=== PATIENT | male | born 1995 | race Caucasian/White ===

== ENCOUNTER 2016-11-15 21:41 | Emergency (ER) | payer OTHER ==
[2016-11-15 21:46] VITALS: BP 128/71
[2016-11-15] MEDS ORDERED: Ibuprofen TAB* 600 MG PO ONE (22:06)
--- NOTE | 2016-11-15 22:47 | RAD ---
INDICATION: Left hand injury COMPARISON: None TECHNIQUE: AP, lateral, and oblique views were obtained. FINDINGS: There is no acute fracture. The joint spaces are obtained. There is a laceration of the thumb. There is is no foreign body IMPRESSION: NO ACUTE FRACTURE OR FOREIGN BODY. LACERATION.
--- NOTE | 2016-11-15 23:04 | ED ---
Upper Extremity Pain - HPI Summary HPI Summary: Pt here w/ Lt hand injury prior to arrival. Was working on a 4-red when it fell of the stand and landed on his hand, cutting the skin over his thumb. Denies numbness, tingling, weakness here - moving fingers and wrist well. Tetanus is UTD as he injuries himself often in his line of work and w/ lifestyle activities. No other injuries to report. - History of Current Complaint Chief Complaint: EDLacSutureRecheck Stated Complaint: LEFT HAND INJURY/LAC Time Seen by Provider: 11/15/16 21:57 Hx Obtained From: Patient - Allergies/Home Medications Allergies/Adverse Reactions: Allergies Allergy/AdvReac Type Severity Reaction Status Date / Time No Known Allergies Allergy Verified 11/15/16 21:46 PMH/Surg Hx/FS Hx/Imm Hx Previously Healthy: Yes Endocrine/Hematology History: Denies: Hx Anticoagulant Therapy, Hx Blood Disorders, Hx Diabetes, Hx Thyroid Disease, Hx Unexplained Bleeding Cardiovascular History: Denies: Hx Congenital Heart Disease, Hx Congestive Heart Failure, Hx Deep Vein Thrombosis, Hx Hypertension, Hx Myocardial Infarction, Hx Pacemaker/ICD Respiratory History: Denies: Hx Asthma, Hx Chronic Obstructive Pulmonary Disease (COPD), Hx Lung Cancer, Hx Pneumonia, Hx Pulmonary Embolism GI History: Denies: Hx Gall Bladder Disease, Hx Gastrointestinal Bleed, Hx Ulcer, Hx Urosepsis History: Denies: Hx Kidney Stones, Hx Renal Disease Neurological History: Denies: Hx Dementia, Hx Migraine, Hx Seizures, Hx Transient Ischemic Attacks (TIA) Psychiatric History: Denies: Hx Anxiety, Hx Depression, Hx Schizophrenia, Hx Bipolar Disorder - Surgical History Surgery Procedure, Year, and Place: knee surgery Infectious Disease History: No Infectious Disease History: Denies: Traveled Outside the [place] in Last 30 Days - Family History Known Family History: Positive: Cardiac Disease, Hypertension Negative: Diabetes - Social History Occupation: Employed Full-time Lives: With Family Alcohol Use: Rare Hx Substance Use: No Substance Use Type: Reports: None Hx Tobacco Use: Yes Smoking Status (MU): Never Smoked Tobacco Type: Smokeless Tobacco Amount Used/How Often: a tin a day Review of Systems Constitutional: Negative Positive: no symptoms reported Musculoskeletal: Other - see HPI Skin: Other - see HPI Neurological: Negative Negative: Weakness, Paresthesia, Numbness Psychological: Normal All Other Systems Reviewed And Are Negative: Yes Physical Exam Triage Information Reviewed: Yes Vital Signs On Initial Exam: Initial Vitals Temp Pulse Resp BP Pulse Ox 98.0 F 87 14 128/71 100 11/15/16 21:42 11/15/16 21:42 11/15/16 21:42 11/15/16 21:42 11/15/16 21:42 Vital Signs Reviewed: Yes Appearance: Positive: Well-Appearing, No Pain Distress, Well-Nourished Skin: Positive: Warm - laceration over Lt posterior thumb/hand - no active bleeding - subcutaneous tissue is observed here - no tendons,vessels or nerves observed - no valdemar debris in wound Head/Face: Positive: Normal Head/Face Inspection ENT: Positive: Hearing grossly normal, Pharynx normal Respiratory/Lung Sounds: Positive: Breath Sounds Present Cardiovascular: Positive: Normal, Pulses are Symmetrical in both Upper and Lower Extremities Musculoskeletal: Positive: Normal, Strength/ROM Intact Neurological: Positive: Normal, Sensory/Motor Intact, Alert, Oriented to Person Place, Time, CN Intact II-III Psychiatric: Positive: Normal Procedures - Laceration/Wound Repair 1 Location: upper extremity - Lt dorsal hand Description: Linear Length, Depth and Shape: 1.25cm x 3mm Betadine Prep?: Yes Irrigated w/ Saline (ccs): 250 Laceration/Wound Explored: no foreign body removed Closure: Single Layer Suture Type: Nylon - 5-0 Number of Sutures: 3 Layer Closure?: No Sterile Dressing Applied?: Yes - triple anbx + sterile dressing + SHARRI wrap Diagnostics - Vital Signs Vital Signs Temp Pulse Resp BP Pulse Ox 11/15/16 21:42 98.0 F 87 14 128/71 100 - Laboratory Lab Statement: Any lab studies that have been ordered have been reviewed, and results considered in the medical decision making process. Course/Dx - Course Course Of Treatment: Pt presents w/ blunt trauma to Lt hand and overlying laceration. XR w/o fx, dislocation or FB. Wound cleaned and closed. Pt had vasovagal reaction when looking at his wound - vitals and POC glucose were WNL. Symptoms improved w/ reclining and eating a snack. Advised f/u w/ PCP for wound check. Reviewed danger s/sx of when to return to ED. Pt and family voice understanding. - Diagnoses Provider Diagnoses: Laceration of left hand Discharge - Discharge Plan Condition: Stable Disposition: HOME Patient Education Materials: Care For Your Stitches (ED), Laceration (ED) Forms: *Work Release Referrals: [facility] [Outside] Additional Instructions: Keep dressing clean, dry and in place for 48 hours. After this time, you may remove dressing - gently wash with antibacterial soap and rinse well with water - pat dry with clean cloth and reapply triple antibiotic and cover with clean gauze. Keep wound covered and dressing dry. Follow-up with your PCP in 10-14 days for wound check and suture removal. Call tomorrow to schedule an appointment. If you do not have a PCP, you may return to ED or go to an urgent care. Rest, elevate, ice for pain and swelling. You may also take ibuprofen with food for pain. *If you develop redness, swelling, purulent drainage, streaking, fever, chills, return to ED
== END 2016-11-16 00:57 | disposition home or self-care (01) ==
LOC: ED 21:41
DX: S61.412A Laceration without foreign body of left hand, initial encounter (principal); W19.XXXA Unspecified fall, initial encounter; Y93.9 Activity, unspecified; Y92.9 Unspecified place or not applicable
CPT/HCPCS: 99282; A9270-GY